=== PATIENT | male | born 1985 | race Hispanic/Latino ===

== ENCOUNTER 2020-08-25 12:10 | Emergency (ER) | payer OTHER ==
[2020-08-25] MEDS ORDERED: TETANUS & DIPHTHERIA TOX,ADULT 0.5 ML VIAL ONE (12:48)
[2020-08-25] MEDS ORDERED: CEFAZOLIN SODIUM 1 GM/VIAL ONE (12:48)
[2020-08-25] MEDS ORDERED: WATER FOR INJ,STERILE 10 ML ONE (12:49)
[2020-08-25] MEDS ORDERED: LIDOCAINE 1% MPF 5 ML VIAL ONE (13:02)
[2020-08-25] MEDS ORDERED: BUPIVACAINE 0.5% PF 10 ML VIAL ONE (13:02)
--- NOTE | 2020-08-25 13:48 | RAD REPORT ---
EXAM DESCRIPTION: RAD - Foot Left 3 View - 08/25/2020 1:28 pm CLINICAL HISTORY: Left Foot pain status post injury FINDINGS: No fracture or dislocation is seen. A wire enters the plantar soft tissues of forefoot at the level of metatarsals.
--- NOTE | 2020-08-25 14:37 | ER ---
Nurse's Notes [facility] Name: Mamadou Fitzpatrick Age: 34 yrs Sex: Male : 1985 Arrival Date: 08/25/2020 Time: 12:12 Bed 4 Private MD: Diagnosis: Puncture wound without foreign body, left foot Presentation: 08/25 12:13 Chief complaint: EMS states: pt was working approx 20 minutes ago, stepped on a wire tw2 and it went through his boot, he said he tried to pull it out but he started having pain, vs stable nkda. Coronavirus screen: At this time, the client does not indicate any symptoms associated with coronavirus-19. Ebola Screen: Patient denies travel to an Ebola-affected area in the 21 days before illness onset. Initial Sepsis Screen: Does the patient meet any 2 criteria? No. Patient's initial sepsis screen is negative. Does the patient have a suspected source of infection? No. Patient's initial sepsis screen is negative. Risk Assessment: Do you want to hurt yourself or someone else? Patient reports no desire to harm self or others. Onset of symptoms was August 25, 2020 at 12:15. 12:13 Method Of Arrival: EMS: [facility] tw2 12:13 Acuity: SOPHIA 3 tw2 Historical: - Allergies: 12:16 No Known Drug Allergies; tw2 - Home Meds: 12:16 omeprazole 20 mg Oral cpDR 1 cap once daily [Active]; tw2 - PMHx: 12:16 GERD; tw2 - Immunization history:: Last tetanus immunization: unknown. - Social history:: Smoking status: . Screenin:14 Abuse screen: Denies threats or abuse. Nutritional screening: No deficits noted. vg1 Tuberculosis screening: No symptoms or risk factors identified. Fall Risk No fall in past 12 months (0 pts). No secondary diagnosis (0 pts). No IV (0 pts). Ambulatory Aid- None/Bed Rest/Nurse Assist (0 pts). Gait- Normal/Bed Rest/Wheelchair (0 pts) Mental Status- Oriented to own ability (0 pts). Total Lane Fall Scale indicates No Risk (0-24 pts). Assessment: 12:13 General: Appears in no apparent distress. comfortable, Behavior is calm, cooperative. vg1 Pain: Denies pain. Neuro: Level of Consciousness is awake, alert, obeys commands, Oriented to person, place, time, situation. Cardiovascular: Patient's skin is warm and dry. Respiratory: Airway is patent Respiratory effort is even, unlabored. GI: No signs and/or symptoms were reported involving the gastrointestinal system. : No signs and/or symptoms were reported regarding the genitourinary system. EENT: No signs and/or symptoms were reported regarding the EENT system. Derm: Skin is intact, is healthy with good turgor. Musculoskeletal: Circulation, motion, and sensation intact. Injury Description: Puncture sustained to left foot. 13:14 Reassessment: Patient appears in no apparent distress at this time. No changes from vg1 previously documented assessment. Patient and/or family updated on plan of care and expected duration. Pain level reassessed. Patient is alert, oriented x 3, equal unlabored respirations, skin warm/dry/pink. 14:34 Reassessment: Patient appears in no apparent distress at this time. No changes from vg1 previously documented assessment. Patient and/or family updated on plan of care and expected duration. Pain level reassessed. Patient is alert, oriented x 3, equal unlabored respirations, skin warm/dry/pink. Patient denies pain at this time. Patient states feeling better. Vital Signs: 12:13 BP 150 / 100; Pulse 83; Resp 17; Temp 99(O); Pulse Ox 95% on R/A; Weight 99.79 kg (R); tw2 Height 5 ft. 9 in. (175.26 cm); Pain 2/10; 13:13 BP 143 / 96; Pulse 89; Resp 18; Pulse Ox 97% on R/A; vg1 14:34 BP 140 / 94; Pulse 85; Resp 16; Pulse Ox 100% ; vg1 15:32 BP 123 / 86; Pulse 77; Resp 17; Pulse Ox 99% on R/A; tw2 12:13 Body Mass Index 32.49 (99.79 kg, 175.26 cm) tw2 12:13 "unless i move my foot" tw2 ED Course: 12:12 Patient arrived in ED. tw2 12:12 Didi Quezada, RN is Primary Nurse. vg1 12:12 Bed in low position. Call light in reach. Pulse ox on. NIBP on. tw2 12:15 Triage completed. tw2 12:16 Arm band placed on. tw2 12:22 Scott Draper MD is Attending Physician. kdr 13:24 Foot Left 3 View XRAY In Process Unspecified. EDMS 15:19 Foot Left 2 View XRAY In Process Unspecified. EDMS 16:09 No provider procedures requiring assistance completed. Patient did not have IV access ss during this emergency room visit. Administered Medications: 12:46 Drug: Tetanus-Diphtheria Toxoid Adult 0.5 ml {Foreman/Project Manager: [employer]. Exp: vg1 09/16/2022. Lot #: [id number]. } Route: IM; Site: right deltoid; 15:38 Follow up: Response: No adverse reaction vg1 12:46 Drug: Ancef (cefazolin) 1 grams Route: IM; Site: left deltoid; vg1 15:38 Follow up: Response: No adverse reaction vg1 Outcome: 14:36 Discharge ordered by . kdr 16:09 Discharged to home via wheelchair, with friend. ss 16:09 Condition: good 16:09 Discharge instructions given to patient, Instructed on discharge instructions, follow up and referral plans. medication usage, Demonstrated understanding of instructions, follow-up care, medications, Prescriptions given X 3. 16:09 Patient left the ED. ss Signatures: Dispatcher [employer] EDNH Scott Draper MD MD [facility] Shanae Hurt, RN RN Anu Pratt RN RN tw2 Didi Quezada RN RN vg1
--- NOTE | 2020-08-25 14:37 | EDPHYS ---
Physician Documentation [facility] Name: Mamadou Fitzpatrick Age: 34 yrs Sex: Male : 1985 Arrival Date: 08/25/2020 Time: 12:12 Bed 4 Private MD: ED Physician Scott Draper HPI: 08/25 16:06 This 34 yrs old Male presents to ER via EMS with complaints of Foot Injury. kdr 16:06 The patient presents with an injury, a laceration, simple, pain, a puncture wound, kdr Rusted wire with sharp end punctured up through the sole of the work boot, tenderness. The complaints affect the left foot. Context: The problem was sustained The [place] and was walking when the object was stepped on and punctured his boot. Onset: The symptoms/episode began/occurred acutely, just prior to arrival. Modifying factors: The symptoms are alleviated by nothing, the symptoms are aggravated by weight bearing, The patient was unable to bear weight or remove his boot since he was impaled by the wire through the boot. Associated signs and symptoms: The patient has no apparent associated signs or symptoms. Severity of symptoms: At their worst the symptoms were mild, in the emergency department the symptoms are unchanged. The patient has not experienced similar symptoms in the past. The patient has not recently seen a physician. Historical: - Allergies: 12:16 No Known Drug Allergies; tw2 - Home Meds: 12:16 omeprazole 20 mg Oral cpDR 1 cap once daily [Active]; tw2 - PMHx: 12:16 GERD; tw2 - Immunization history:: Last tetanus immunization: unknown. - Social history:: Smoking status: . ROS: 16:06 MS/extremity: Positive for pain, Impaled wire through boot, of the ball of left foot, kdr Negative for injury or acute deformity, abrasion, bite, contusion, decreased range of motion. 16:06 Constitutional: Negative for fever, chills, and weight loss. Exam: 16:06 Constitutional: This is a well developed, well nourished patient who is awake, alert, kdr and in no acute distress. 16:06 Musculoskeletal/extremity: Extremities: grossly normal except: noted in the ball of left foot: abrasion, bite, contusion, decreased ROM, pain, puncture. Vital Signs: 12:13 BP 150 / 100; Pulse 83; Resp 17; Temp 99(O); Pulse Ox 95% on R/A; Weight 99.79 kg (R); tw2 Height 5 ft. 9 in. (175.26 cm); Pain 2/10; 13:13 BP 143 / 96; Pulse 89; Resp 18; Pulse Ox 97% on R/A; vg1 14:34 BP 140 / 94; Pulse 85; Resp 16; Pulse Ox 100% ; vg1 15:32 BP 123 / 86; Pulse 77; Resp 17; Pulse Ox 99% on R/A; tw2 12:13 Body Mass Index 32.49 (99.79 kg, 175.26 cm) tw2 12:13 "unless i move my foot" tw2 Procedures: 16:06 Performed Regional Block: Posterior tibial. The posterior tibial artery(PROFESSOR OF KINESIOLOGY) was kdr located posterior to the medial malleolus. The site was prepped with alcohol wipe and a wheel was raised over the PROFESSOR OF KINESIOLOGY. The needle was then advanced until the patient noted a slight tingling in his foot. At that point, about 6 cc was infused and the patient was left to take effected. After about 30 - 45 minutes later the local anesthetic had taken full effect and the boot and wire were removed without any pain or difficulty. The site was cleaned and irrigated. I spoke with Dr. Oakes about follow-up and indicated that Friday would be fine. The patient tolerated the procedure well and there was no blood loss. MDM: 14:36 Patient medically screened. kdr 08/25 12:26 Order name: Foot Left 3 View XRAY; Complete Time: 14:37 kdr 08/25 14:37 Order name: Foot Left 2 View XRAY; Complete Time: 15:55 kdr Administered Medications: 12:46 Drug: Tetanus-Diphtheria Toxoid Adult 0.5 ml {Animal Skinner: rumr. Exp: vg1 09/16/2022. Lot #: [id number]. } Route: IM; Site: right deltoid; 15:38 Follow up: Response: No adverse reaction vg1 12:46 Drug: Ancef (cefazolin) 1 grams Route: IM; Site: left deltoid; vg1 15:38 Follow up: Response: No adverse reaction vg1 Disposition: 08/25/20 14:36 Discharged to Home. Impression: Puncture wound without foreign body, left foot. - Condition is Stable. - Discharge Instructions: Puncture Wound, [id number]. - Prescriptions for Clindamycin HCl 300 mg Oral Capsule - take 1 capsule by ORAL route every 6 hours for 10 days; 40 capsule. Tramadol 50 mg Oral Tablet - take 1 tablet by ORAL route every 8 hours as needed; 12 tablet. Bactrim DS 800- 160 mg Oral Tablet - take 1 tablet by ORAL route every 12 hours for 10 days; 20 tablet. - Medication Reconciliation Form, Thank You Letter, Antibiotic Education, Prescription Opioid Use form. - Follow up: Private Physician; When: 2 - 3 days; Reason: If symptoms return, Further diagnostic work-up, Recheck today's complaints, Continuance of care, Re-evaluation by your physician. - Problem is new. - Symptoms have improved. - Notes: There is a very high opportunity for infection of this wound. Follow-up with Dr. Oakes is very important as soon as possible. Signatures: Dispatcher [employer] EDMO Scott Draper MD MD kdr Shanae Hurt RN RN ss Anu Pratt, RN RN tw2 Didi Quezada, RN RN vg1 Corrections: (The following items were deleted from the chart) 16:09 14:36 08/25/2020 14:36 Discharged to Home. Impression: Puncture wound without foreign ss body, left foot. Condition is Stable. Forms are Medication Reconciliation Form, Thank You Letter, Antibiotic Education, Prescription Opioid Use. Follow up: Private Physician; When: 2 - 3 days; Reason: If symptoms return, Further diagnostic work-up, Recheck today's complaints, Continuance of care, Re-evaluation by your physician. Problem is new. Symptoms have improved. kdr
--- NOTE | 2020-08-25 15:40 | RAD REPORT ---
EXAM DESCRIPTION: RAD - Foot Left 2 View - 08/25/2020 3:19 pm CLINICAL HISTORY: Left Foot pain FINDINGS: No fracture or dislocation is seen. Previously described wire has been removed. There appears to be a bandage which overlies the dorsal aspect adjacent to midfoot. This should corre lated clinically.
[2020-08-26 12:16] VITALS: TEMP 99
[2020-08-26 12:20] VITALS: BP 123/86; O2SAT 99
== END 2020-08-25 16:09 | disposition home or self-care (01) ==
LOC: ER 12:10
PROC: 3E0T3BZ Introduction of Anesthetic Agent into Peripheral Nerves and Plexi, Percutaneous Approach (ICD-10-PCS; principal; 2020-08-25)
DX: S91.342A Puncture wound with foreign body, left foot, initial encounter (principal); Z23 Encounter for immunization; W26.8XXA Contact with other sharp object(s), not elsewhere classified, initial encounter; W45.8XXA Other foreign body or object entering through skin, initial encounter; W22.09XA Striking against other stationary object, initial encounter
CPT/HCPCS: 90471; 90714; 96372; 99284; J0690